=== PATIENT | male | born 1930 | race Caucasian/White ===

== ENCOUNTER → 2016-10-06 | Outpatient (CLI) | payer MEDICARE | END | disposition home or self-care (01) | LOC: PCVCIMAG 10:20 | PROVIDERS: ATTEND Internal Medicine Cardiovascular Disease | DX: I25.10 Atherosclerotic heart disease of native coronary artery without angina pectoris (principal); I25.5 Ischemic cardiomyopathy; I10 Essential (primary) hypertension; E11.9 Type 2 diabetes mellitus without complications; E78.00 Pure hypercholesterolemia, unspecified | CPT/HCPCS: 93325; 93351 ==

== ENCOUNTER → 2017-06-01 | Outpatient (CLI) | payer MEDICARE | END | disposition home or self-care (01) | LOC: PCVCCLINIC 13:10 | PROVIDERS: ATTEND Internal Medicine Cardiovascular Disease | DX: I25.10 Atherosclerotic heart disease of native coronary artery without angina pectoris (principal); I73.9 Peripheral vascular disease, unspecified; I25.5 Ischemic cardiomyopathy; I10 Essential (primary) hypertension; E78.00 Pure hypercholesterolemia, unspecified; E11.9 Type 2 diabetes mellitus without complications; R94.31 Abnormal electrocardiogram [ECG] [EKG]; Z79.899 Other long term (current) drug therapy; Z79.82 Long term (current) use of aspirin; Z79.84 Long term (current) use of oral hypoglycemic drugs | CPT/HCPCS: 80061; 93005; G0463 ==

== ENCOUNTER → 2017-07-31 | Outpatient (CLI) | payer MEDICARE | END | disposition home or self-care (01) | LOC: PCVCCLINIC 12:50 | PROVIDERS: ATTEND Internal Medicine Cardiovascular Disease | DX: I25.10 Atherosclerotic heart disease of native coronary artery without angina pectoris (principal); I10 Essential (primary) hypertension; I77.9 Disorder of arteries and arterioles, unspecified; E11.9 Type 2 diabetes mellitus without complications; I35.0 Nonrheumatic aortic (valve) stenosis; Z79.899 Other long term (current) drug therapy; Z79.82 Long term (current) use of aspirin | CPT/HCPCS: 36415; 93005; G0463 ==

== ENCOUNTER → 2017-12-21 | Outpatient (CLI) | payer MEDICARE | END | disposition home or self-care (01) | LOC: PCVCCLINIC 12:35 | DX: I25.10 Atherosclerotic heart disease of native coronary artery without angina pectoris (principal); I10 Essential (primary) hypertension; E11.9 Type 2 diabetes mellitus without complications; I73.9 Peripheral vascular disease, unspecified; E78.00 Pure hypercholesterolemia, unspecified; Z98.890 Other specified postprocedural states; Z88.0 Allergy status to penicillin; Z79.899 Other long term (current) drug therapy | CPT/HCPCS: 80061; 93005; G0463 ==

== ENCOUNTER → 2018-10-21 | Outpatient (CLI) | payer MEDICARE | END | disposition home or self-care (01) | LOC: PCVCCLINIC 15:29 | PROVIDERS: ATTEND Internal Medicine Cardiovascular Disease | DX: I25.10 Atherosclerotic heart disease of native coronary artery without angina pectoris (principal); I10 Essential (primary) hypertension; E11.9 Type 2 diabetes mellitus without complications; I73.9 Peripheral vascular disease, unspecified; I65.23 Occlusion and stenosis of bilateral carotid arteries; E78.00 Pure hypercholesterolemia, unspecified; Z79.899 Other long term (current) drug therapy | CPT/HCPCS: 36415; 80061; 93005; G0463 ==

== ENCOUNTER → 2019-06-16 | Outpatient (CLI) | payer MEDICARE ==
--- NOTE | 2019-06-16 15:33 | PCVCIMAG ---
EXAM: BILATERAL CAROTID DUPLEX INDICATION: Carotid Occlusive Disease. FINDINGS: Doppler Measurements (centimeters per second): RIGHT: Peak CCA-63, Peak ECA-99, Diastolic ICA-19, Peak ICA-94, ICA/CCA Ratio-1.5. LEFT: Peak CCA-76, Peak ECA-112, Diastolic ICA-25, Peak ICA-136, ICA/CCA Ratio-1.8. RIGHT CAROTID: The carotid bulb has moderate plaque. The proximal internal carotid artery shows <40% stenosis. The common carotid artery shows no significant stenosis. The external carotid artery shows no significant stenosis. LEFT CAROTID: The carotid bulb has moderate plaque. The proximal internal carotid artery shows 40-50% stenosis. The common carotid artery shows no significant stenosis. The external carotid artery shows no significant stenosis. Antegrade flow in both vertebral arteries. IMPRESSION: <40% stenosis of the right internal carotid artery with moderate plaque. 40-50% stenosis of the left internal carotid artery with moderate plaque. LOC:[place] [id number]
--- NOTE | 2019-06-16 17:53 | PCVCIMAG ---
APPROVED REPORT Study performed: 06/16/2019 13:21:44 EXAM: Comprehensive 2D, Doppler, and color-flow Echocardiogram Patient Location: Echo lab Status: routine BSA: 1.91 HR: 77 bpmBP: 146/76 mmHg Rhythm: NSR Other Information Study Quality: Adequate Risk Factors: Cardiac Risk Factors: HTN, DM, Hyperlipidemia Indications CAD aortic sclerosis 2D Dimensions IVSd: 13.75 (7-11mm)LVOT Diam: 24.28 (18-24mm) LVDd: 41.14 mm PWd: 12.56 (7-11mm)Ascending Ao: 36.73 (22-36mm) LVDs: 28.33 (25-40mm) Left Atrium: 37.67 (27-40mm) Aortic Root: 35.30 mm LV Single Plane 4CH: 46.03 % LV Single Plane 2CH: 53.48 % Biplane EF: 49.6 % Volumes Left Atrial Volume (Systole) Single Plane 4CH: 66.88 mLSingle Plane 2CH: 93.86 mL LA ESV Index: 44.00 mL/m2 Aortic Valve AoV Peak Mingo.: 2.35 m/s AO Peak Gr.: 22.07 mmHgLVOT Max P.76 mmHg LVOT Max V: 0.94 m/s LAST Vmax: 1.86 cm2 Mitral Valve E/A Ratio: 0.6 MV Decel. Time: 341.55 ms MV E Max Mingo.: 0.54 m/s MV A Mingo.: 0.87 m/s IVRT: 128.03 ms Pulmonary Valve PV Peak Mingo.: 1.19 m/sPV Peak Gr.: 5.62 mmHg Pulmonary Vein P Vein S: 0.28 m/sP Vein A: 0.43 m/s P Vein D: 0.40 m/sP Vein A Dur.: 152.2 msec P Vein S/D Ratio: 0.70 Tricuspid Valve TR Peak Mingo.: 2.81 m/s TR Peak Gr.: 31.49 mmHg Left Ventricle The left ventricle is normal size. There is normal LV segmental wall motion. Mild to moderate concentric left ventricular hypertrophy. Left ventricular systolic function is within lower limits of normal. LVEF is 50%. Grade I - abnormal relaxation pattern. Right Ventricle The right ventricle is normal size. The right ventricular systolic function is normal. Atria Left atrium is moderately dilated. The right atrium size is normal. Aortic Valve The aortic valve is normal in structure. Mild aortic regurgitation. There is no aortic valvular stenosis. Mitral Valve The mitral valve is normal in structure. Trace mitral regurgitation. No evidence of mitral valve stenosis. Tricuspid Valve The tricuspid valve is normal in structure. Mild tricuspid regurgitation with PAP of 38 mmHg. Pulmonic Valve The pulmonary valve is normal in structure. Mild pulmonic regurgitation. Great Vessels The aortic root is normal in size. IVC is normal in size and collapses >50% with inspiration. Pericardium There is no pericardial effusion. There is no pleural effusion. <Conclusion> The left ventricle is normal size. Mild to moderate concentric left ventricular hypertrophy. LVEF is 50%. Grade I - abnormal relaxation pattern. The right ventricle is normal size. Left atrium is moderately dilated. Mild aortic regurgitation. Trace mitral regurgitation. Mild tricuspid regurgitation with PAP of 38 mmHg. The aortic root is normal in size. There is no pericardial effusion.
== END | disposition home or self-care (01) ==
LOC: PCVCIMAG 12:54
PROVIDERS: ATTEND Internal Medicine Cardiovascular Disease
DX: I65.23 Occlusion and stenosis of bilateral carotid arteries (principal); I08.2 Rheumatic disorders of both aortic and tricuspid valves; E11.9 Type 2 diabetes mellitus without complications; I10 Essential (primary) hypertension; E78.00 Pure hypercholesterolemia, unspecified; Z85.46 Personal history of malignant neoplasm of prostate
CPT/HCPCS: 93306; 93880